=== PATIENT | male | born 1930 | race Caucasian/White ===

== ENCOUNTER 2018-06-11 16:34 | Inpatient (IN) | payer OTHER, MEDICAID ==
[~2018-06-11] VITALS: Ht 182.9 cm; Wt 93.4 kg
--- NOTE | 2018-06-11 19:20 | NUR ---
Admission note. Rerceived 88 y.o male direct admission from [facility] via wheelchair. Awake, alert & oriented to name only. Unable to ambulate on own. Placed n Room 105A. Instructed on use of call igh Addendum: 06/11/18 at 2018 by Thierry Hagen RN Instructed on use of call light. Bed in low, locked position with bed alarm in place.
[2018-06-11 19:51] VITALS: BP_SYST 158
[2018-06-11 20:00] VITALS: BP_SYST 158
[2018-06-11] MEDS ORDERED: AMLO5TAB4 PO (20:56)
[2018-06-11] MEDS ORDERED: LOVA40TA75 PO (21:11)
[2018-06-11] MEDS ORDERED: ACET325T53 PO (21:11)
[2018-06-11] MEDS ORDERED: MOM PO (21:11)
[2018-06-11] MEDS ORDERED: DONE10TA44 PO (21:11)
[2018-06-11] MEDS ORDERED: VITD400 PO (21:11)
[2018-06-11] MEDS ORDERED: SYN50 PO (21:11)
[2018-06-11] MEDS ORDERED: MULT-300 PO (21:11)
[2018-06-11] MEDS ORDERED: OMEG-143 PO (21:11)
[2018-06-11] MEDS ORDERED: CELE100C PO (21:11)
[2018-06-11] MEDS ORDERED: MELA3TAB PO (21:11)
[2018-06-11] MEDS ORDERED: DEXT30DR6 EACH EYE (21:11)
[2018-06-11] MEDS ORDERED: THEO200C4 PO (21:11)
[2018-06-11] MEDS ORDERED: DOCU-144 PO (21:11)
[2018-06-11] MEDS ORDERED: CYM30 PO (21:11)
[2018-06-11] MEDS ORDERED: CALC-823 PO (21:11)
[2018-06-11] MEDS ORDERED: TAMS-11 PO (21:11)
[2018-06-11 21:20] LABS: BASOPHILS # (AUTO) 0.1 K/uL (0.0-0.2); BASOPHILS % (AUTO) 1.3 % (0.0-2.0); EOSINOPHILS # (AUTO) 0.2 K/uL (0.0-0.4); EOSINOPHILS % (AUTO) 2.6 % (0.0-4.0); HEMATOCRIT 45.8 % (36-54); HEMOGLOBIN 14.5 g/dL (14.0-18.0); LYMPHOCYTES # (AUTO) 1.5 K/uL (1.0-5.5); LYMPHOCYTES % (AUTO) 21.4 % (20.5-51.5); MEAN CORPUSCULAR HEMOGLOBIN 31 pg (27-31); MEAN CORPUSCULAR HGB CONC 32 % (32-36); MEAN CORPUSCULAR VOLUME 99 fL (79.0-98.0); MONOCYTES # (AUTO) 0.6 K/uL (0.0-1.0); NEUTROPHILS # (AUTO) 4.7 K/uL (1.8-7.7); NEUTROPHILS % (AUTO) 65.7 % (40.0-70.0); PLATELET COUNT (AUTO) 174 K/uL (130-430); RED BLOOD CELL COUNT(AUTO) 4.64 MIL/uL (4.2-6.2); WHITE BLOOD COUNT (AUTO) 7.1 K/uL (4.8-10.8)
[2018-06-11] MEDS ORDERED: ACETAMINOPHEN 325 MG TABLET PO SCH (21:30)
[2018-06-11] MEDS ORDERED: MILK OF MAGNESIA 30 ML UDC PO SCH (21:30)
--- NOTE | 2018-06-11 21:45 | NUR ---
IV started on the right hand #22g. Patient tolerated procedure well.
[2018-06-11 22:01] LABS: ALANINE AMINOTRANSFERASE 27 U/L (12-78); ALBUMIN 3.5 g/dL (3.4-4.8); ANION GAP 9 (5-15); ASPARTATE AMINOTRANSFERASE 15 U/L (10-37); CALCIUM 9.3 mg/dL (8.4-11.0); CHLORIDE 112 mmol/L (98-107); CREATININE 1.19 mg/dL (0.55-1.30); GLUCOSE 103 mg/dL (70-99); POTASSIUM 4.3 mmol/L (3.5-5.1); SODIUM SERUM 144 mmol/L (136-145); TOTAL BILIRUBIN 0.5 mg/dL (0.0-1.0); UREA NITROGEN, BLOOD 40 mg/dL (8-21)
[2018-06-11 22:06] VITALS: BP_SYST 158
[2018-06-11] MEDS ORDERED: ACETAMINOPHEN 325 MG TABLET PO PRN (22:45)
[2018-06-11] MEDS ORDERED: MILK OF MAGNESIA 30 ML UDC PO PRN (22:45)
[2018-06-11] MEDS: D5/0.45 NS 1,000 ML IV SCH (22:51)
[2018-06-11] MEDS: LevALBUTEROL HCL 1.25 MG/0.5 ML *CONC.* VIAL.NEB (XOPENEX CONC.) INH SCH (23:31)
[2018-06-12] VITALS: BP_SYST 126
--- NOTE | 2018-06-12 02:49 | NUR ---
Patient is sleeping, resting comfortably in bed. No SOB, no acute distress, no signs of pain or facial grimacing. Breathing is even and unlabored with visible chest rise and fall noted. Call light is within reach.
--- NOTE | 2018-06-12 04:45 | NUR ---
Patient is awake, resting comfortably in bed. No SOB, no acute distress, no complaints of pain. Positive affect at this time. Patient is laughing. Bed is locked, in the lowest position, 2x side rails up, bed alarm is on. Call light is within reach. Encouraged patient to call.
--- NOTE | 2018-06-12 05:42 | NUR ---
Patient is sleeping, resting comfortably in bed. No SOB, no acute distress, no signs of pain or facial grimacing at this time. IV site is intact, currently infusing IVF at the ordered rate, see eMAR for details. Bed is locked, in the lowest position, 3x side rails up, bed alarm is on. Call light is within reach.
[2018-06-12] MEDS: LEVOTHYROXINE SODIUM 0.05 MG TABLET PO SCH (06:15)
[2018-06-12] MEDS: LevALBUTEROL HCL 1.25 MG/0.5 ML *CONC.* VIAL.NEB (XOPENEX CONC.) INH SCH ×3 (07:15→23:40)
--- NOTE | 2018-06-12 07:50 | NUR ---
INITIAL NOTE RECEIVED PATIENT FROM WEAPONS OFFICER. PATIENT IS RESTING IN BED, EASILY AROUSABLE. A/OX1. DENIES PAIN. ROOM AIR. NO ACUTE DISTRESS. NO SOB. RESPIRATION EVEN AND UNLABORED. SKIN WARM AND DRY TO TOUCH. IV INTACT AND PATENT TO RIGHT HAND. YEIMY IV FLUID ORDERED WITH NO S/SX INFILTRATION NOTED. BED IN LOW AND LOCKED POSITION. SIDERAIL UP X3. BED ALARM ON. ALL NEEDS MET. CALL LIGHT IN REACH. CONT TO MONITOR.
--- NOTE | 2018-06-12 07:58 | NUR ---
Closing Notes Handoff report given to oncoming dayshift nurse at the bedside. Patient is asleep, resting comfortably in bed. No SOB, no acute distress, no signs of pain or facial grimacing. Breathing is even and unlabored with visible chest rise and fall noted. IV site is intact, currently infusing IVF at the ordered rate, see eMAR. Bed is locked, in the lowest position, 3x side rails up, bed alarm is on. Call light is within reach. Fall and safety precautions maintained. All needs have been met during this shift.
[2018-06-12 08:00] VITALS: BP_SYST 129
[2018-06-12] MEDS: CELECOXIB 100 MG CAPSULE PO SCH (08:56)
[2018-06-12] MEDS: DOCUSATE SODIUM 100 MG CAPSULE PO SCH (08:56)
[2018-06-12] MEDS: ENOXAPARIN SODIUM 40 MG/0.4 ML SYRINGE SUBCUT SCH (08:56)
[2018-06-12] MEDS: ATORVASTATIN 10 MG TABLET PO SCH (08:56)
[2018-06-12] MEDS: MULTIVITS,CA,MINERALS/IRON/FA 1 TABLET PO SCH (08:56)
[2018-06-12] MEDS: CALCIUM CARBONATE/VITAMIN D3 1 TAB TABLET PO SCH (08:57)
[2018-06-12] MEDS: amLODIPine BESYLATE 5 MG TABLET PO SCH (08:57)
[2018-06-12] MEDS: DULoxetine HCL 30 MG CAPSULE.DR (CYMBALTA) PO SCH (08:57)
[2018-06-12] MEDS: THEOPHYLLINE ANHYDROUS 200 MG CAP.ER.24H PO SCH (08:58)
[2018-06-12] MEDS: CEFEPIME 1 GM in D5W 50 ML IV SCH (08:59)
[2018-06-12] MEDS ORDERED: OMEGA-3/DHA/EPA/FISH OIL 1 GM CAPSULE PO SCH (09:00)
[2018-06-12] MEDS: PEG 400/HYPROMELLOSE/GLYCERIN 15 ML DROPS EACH EYE SCH ×2 (09:00→20:56)
--- NOTE | 2018-06-12 09:00 | NUR ---
MEDS ALL DUE MEDS ADMINISTERED ORDERED, YEIMY WELL. CONT TO MONITOR. CALL LIGHT IN REACH
--- NOTE | 2018-06-12 10:00 | NUR ---
NOTES PROVIDED INCONTINENCE CARE WITH CARE MANAGEMENT ASSOCIATE AND REPOSITIONED FOR COMFORT, YEIMY WELL. ALL NEEDS MET. CALL LIGHT IN REACH. CONT TO MONITOR.
--- NOTE | 2018-06-12 10:49 | NUR ---
Nutrition Update Brendan Scale 17 noted. Pt admitted for UTI. Diet: regular, cardiac, mechanical soft BMI: 27.9 kg/m2 RD to follow per nutrition care standards.
[2018-06-12 11:27] VITALS: BP_SYST 112
--- NOTE | 2018-06-12 12:00 | NUR ---
NOTES PATIENT RESTING IN BED. REPOSITIONED FOR LUNCH WITH PATIENT SITTING UPRIGHT IN BED, YEIMY WELL. ALL NEEDS MET. CONT TO MONITOR. CALL LIGHT IN REACH.
[2018-06-12] MEDS: D5/0.45 NS 1,000 ML IV SCH (12:05)
--- NOTE | 2018-06-12 13:00 | NUR ---
NOTES TICKET SCHEDULER ASSISTED PATIENT WITH LUNCH. PATIENT ATE WELL WITH NO COMPLICATIONS NOTED. ALL NEEDS MET. CONT TO MONITOR
--- NOTE | 2018-06-12 14:00 | NUR ---
NOTES PATIENT RESTING COMFORTABLY. NOTED RISE/FALL OF CHEST. ROOM AIR. NO ACUTE DISTRESS. NO SOB. RESPIRATION EVEN AND UNLABORED. ALL NEEDS MET. CONT TO MONITOR.
[2018-06-12 15:01] VITALS: BP_SYST 106
--- NOTE | 2018-06-12 16:00 | NUR ---
NOTES PATIENT ATTEMPTED TO GET OUT OF BED; BED ALARMED. PATIENT CONFUSED AND REMOVED GOWN. PROVIDED PATIENT WITH NEW GOWN AND PROVIDED INCONTINENCE CARE, YEIMY WELL. REPOSITIONED FOR COMFORT WITH PILLOWS. ALL NEEDS MET. BED LOW AND LOCKED. SIDERAIL UPX3. BED ALARM ON. ROOM NEAR NURSES STATION. CONT TO MONITOR. CALL LIGHT IN REACH.
--- NOTE | 2018-06-12 18:00 | NUR ---
NOTES REPOSITIONED PATIENT FOR COMFORT WITH FINE ARTS MODEL, YEIMY WELL. PATIENT AWAKE IN BED. VITAL SIGN STABLE. ALL NEEDS MET. CONT TO MONITOR.
--- NOTE | 2018-06-12 19:00 | NUR ---
CLOSING NOTE/ PATIENT AWAKE IN BED. NO S/SX PAIN/DISCOMFORT NOTED. NO ACUTE DISTRESS. NO SOB. RESPIRATION EVEN AND UNLABORED. SKIN WARM AND DRY TO TOUCH. IV INTACT AND PATENT WITH NO S/SX INFECTION/INFILTRATION NOTED. KEPT CLEAN AND DRY. BED IN LOW AND LOCKED POSITION. SIDERAIL UP X3. BED ALARM. ALL NEEDS MET. CALL LIGHT IN REACH. CONT TO MONITOR. ROOM NEAR NURSES STATION. WILL ENDORSE TO ONCOMING SHIFT. SEEN AND EXAMINED BY AT BEDSIDE.
--- NOTE | 2018-06-12 19:20 | NUR ---
INITIAL NOTES Handoff report received from offgoing nurse at the bedside. Patient is awake and alert, resting comfortably in bed. No SOB, no acute distress, no complaints of pain at this time. Bed is locked, in the lowest position, 3x side rails up, bed alarm is on. Call light is within reach. Encouraged patient to call for assistance. Will continue with plan of care.
[2018-06-12 20:00] VITALS: BP_SYST 128
[2018-06-12] MEDS: CHOLECALCIFEROL (VITAMIN D-3) 400 UNIT TABLET PO SCH (20:56)
[2018-06-12] MEDS: TAMSULOSIN HCL 0.4 MG CAP PO SCH (20:56)
[2018-06-12] MEDS: DONEPEZIL HCL 5 MG TABLET (ARICEPT) PO SCH (20:56)
[2018-06-12] MEDS ORDERED: NON-FORMULARY MEDICATION (Melatonin 3 MG) PO SCH (21:00)
--- NOTE | 2018-06-12 22:00 | NUR ---
Patient is resting comfortably in bed. No SOB, no acute distress, no signs of pain or facial grimacing at this time. Bed is locked, in the lowest position, 3x side rails up, bed alarm is on. Call light is within reach.
--- NOTE | 2018-06-12 23:40 | NUR ---
Patient is attempting to climb out of bed. Tried to reorient patient to hospital setting, patient did not verbalize understanding. States that he is sleeping in a pile of metal right now, and that he wants to go back to base. Repositioned the patient for comfort. Also covered the patient in blankets. Patient is now resting comfortably in bed. No SOB, no acute distress, no complaints of pain at this time. Bed is locked, in the lowest position, 3x side rails up, bed alarm is on. Call light is within reach. Encouraged patient to call for assistance.
[2018-06-13 00:10] VITALS: BP_SYST 136
--- NOTE | 2018-06-13 02:00 | NUR ---
Patient is awake, resting comfortably in bed. No SOB, no acute distress, no complaints of pain at this time. Bed is locked, in the lowest position, 2x side rails up, bed alarm is on. Call light is within reach. Encouraged patient to call for assistance.
[2018-06-13] MEDS: D5/0.45 NS 1,000 ML IV SCH ×2 (02:35→13:58)
--- NOTE | 2018-06-13 03:30 | NUR ---
Patient attempted to climb out of bed. When asking the patient where he was going, patient stated that he needed to use the restroom for a bowel movement. Promptly assisted the patient back into bed, and provided the patient a bedpan. Patient was unable to void at this time. Assisted the patient into a comfortably position in bed, and also provided warm blankets per patient request. Bed is locked, in the lowest position, 2x side rails up, bed alarm is on. Call light is within reach. Encouraged patient to call for assistance.
--- NOTE | 2018-06-13 06:00 | NUR ---
Patient is sitting up in bed, confused. Stating that he currently knows that he is at [facility], but doesn't know why he is here or where the doctor is at. Reoriented patient to hospital setting. Patient is surprised that he is in the hospital, appears to be more awake then previously, AAOx2 to name and place only at this time. Will continue to monitor patient closely. Assisted patient back into bed and provided warm blankets for the patient per patient request.
[2018-06-13] MEDS: LEVOTHYROXINE SODIUM 0.05 MG TABLET PO SCH (06:01)
[2018-06-13] MEDS: LevALBUTEROL HCL 1.25 MG/0.5 ML *CONC.* VIAL.NEB (XOPENEX CONC.) INH SCH ×3 (07:19→23:44)
--- NOTE | 2018-06-13 07:29 | NUR ---
CLOSING NOTES Handoff report given to oncoming dayshift nurse at the bedside. Patient is sleeping, resting comfortably in bed. No SOB, no acute distress, no signs of pain or discomfort. Bed is locked, in the lowest position, 3x side rails up, bed alarm is on. Call light is within reach. Fall and safety precautions maintained. All needs have been met during this shift.
--- NOTE | 2018-06-13 07:45 | NUR ---
INITIAL NOTE RECEIVED REPORT FROM AUTO CUSTOMIZE PAINTER. PATIENT RESTING IN BED, EASILY AROUSABLE. PATIENT CONFUSED. A/Ox1. NO S/SX PAIN/DISCOMFORT NOTED. ROOM AIR. NO ACUTE DISTRESS. NO SOB. RESPIRATION EVEN AND UNLABORED. SKIN WARM AND DRY TO TOUCH. IV INTACT AND PATENT. YEIMY IV FLUID ORDERED. REPOSITIONED FOR COMFORT, YEIMY WELL. BED IN LOW AND LOCKED POSITION. SIDERAIL UP X3. ROOM NEAR NURSES STATION. ALL NEEDS MET. CALL LIGHT IN REACH. CONT TO MONITOR WITH FREQUENT VISUAL CHECKS.
[2018-06-13 08:00] VITALS: BP_SYST 119
[2018-06-13] MEDS: THEOPHYLLINE ANHYDROUS 200 MG CAP.ER.24H PO SCH (09:01)
[2018-06-13] MEDS: CEFEPIME 1 GM in D5W 50 ML IV SCH (09:01)
[2018-06-13] MEDS: PEG 400/HYPROMELLOSE/GLYCERIN 15 ML DROPS EACH EYE SCH ×2 (09:02→21:09)
[2018-06-13] MEDS: DULoxetine HCL 30 MG CAPSULE.DR (CYMBALTA) PO SCH (09:02)
[2018-06-13] MEDS: CELECOXIB 100 MG CAPSULE PO SCH (09:02)
[2018-06-13] MEDS: CALCIUM CARBONATE/VITAMIN D3 1 TAB TABLET PO SCH (09:02)
[2018-06-13] MEDS: MULTIVITS,CA,MINERALS/IRON/FA 1 TABLET PO SCH (09:03)
[2018-06-13] MEDS: amLODIPine BESYLATE 5 MG TABLET PO SCH (09:03)
[2018-06-13] MEDS: DOCUSATE SODIUM 100 MG CAPSULE PO SCH (09:03)
[2018-06-13] MEDS: ATORVASTATIN 10 MG TABLET PO SCH (09:03)
[2018-06-13] MEDS: ENOXAPARIN SODIUM 40 MG/0.4 ML SYRINGE SUBCUT SCH (09:04)
--- NOTE | 2018-06-13 09:05 | NUR ---
MEDS ALL DUE MEDS ADMINISTERED WITH NO DIFFICULTY, PATIENT YEIMY WELL. ALL NEEDS MET. CONT TO MONITOR. Addendum: 06/13/18 at 1329 by Rachel Marquez RN ASSISTED PATIENT WITH BREAKFAST. PATIENT DID NOT WANT BREAKFAST EARLIER. PATIENT ONLY WANTED CREAM OF WHEAT AND MILK, YEIMY WELL.
--- NOTE | 2018-06-13 10:15 | NUR ---
NOTES ASSISTED DIRECTOR SYSTEMS WITH INCONTINENCE CARE, PATIENT YEIMY WELL. REPOSITIONED WITH PILLOW FOR COMFORT. ALL NEEDS MET. CONT TO MONITOR.
--- NOTE | 2018-06-13 12:00 | NUR ---
NOTES REPOSITIONED PATIENT SITTING UP FOR LUNCH, YEIMY WELL. VITAL SIGN STABLE. NO ACUTE DISTRESS. ALL NEEDS MET. CONT TO MONITOR.
--- NOTE | 2018-06-13 12:19 | NUR ---
DC Planning: DCP assessment: CM attempted to speak with the pt. yesterday and today, but unable to. The pt was asleep and per nurse's note the pt. is confused, ALOC. CM called phone number available on face sheet # [phone] which is belong to [facility] address: [address] [place] [address] (different from the address on ). CM is waiting for call back from the facility. CM also LVM pt's son, Thang Whipple # [phone] and is waiting for his return call for further demographic and background assessment.
[2018-06-13 12:26] VITALS: BP_SYST 129
--- NOTE | 2018-06-13 13:00 | NUR ---
NOTES WET MACHINE TENDER ASSISTED PATIENT WITH LUNCH, YEIMY WELL. NO COMPLICATIONS NOTED. ALL NEEDS MET. CONT TO MONITOR.
--- NOTE | 2018-06-13 13:59 | NUR ---
IVF HUNG NEW BAG OF IV FLUIDS ORDERED YEIMY WELL. IV INTACT AND PATENT WITH NO S/SX INFECTION/INFILTRATION NOTED. CONT TO MONITOR.
--- NOTE | 2018-06-13 15:25 | NUR ---
NOTES PATIENT RESTING COMFORTABLY IN BED. RISE/FALL CHEST NOTED. NO ACUTE DISTRESS. NO SOB. RESPIRATION EVEN AND UNLABORED. SKIN WARM AND DRY TO TOUCH. CALL LIGHT IN REACH. CONT TO MONITOR WITH FREQUENT VISUAL CHECKS
--- NOTE | 2018-06-13 15:54 | NUR ---
Social Service Note: SKILLED LABORER has contacted [facility] ( ); SKILLED LABORER left a message with the studio receptionist for the social work manager to call SKILLED LABORER back to discuss pt's DC from [facility] and where he was discharged to.
[2018-06-13 16:25] VITALS: BP_SYST 132
--- NOTE | 2018-06-13 16:50 | NUR ---
NOTES ASSISTED PROCESSOR GRAIN WITH INCONTINENCE CARE AND REPOSITIONED PATIENT FOR DINNER; PATIENT YEIMY WELL. ALL NEEDS MET. CONT TO MONITOR.
--- NOTE | 2018-06-13 17:30 | NUR ---
NOTES PIN MACHINE OPERATOR ASSISTED PATIENT WITH EATING DINNER, PATIENT YEIMY WELL. NO COMPLICATIONS NOTED. CONT TO MONITOR.
--- NOTE | 2018-06-13 18:37 | NUR ---
CLOSING NOTE PATIENT RESTING IN BED, EASILY AROUSABLE. VITAL SIGN STABLE. NO ACUTE DISTRESS. NO SOB. RESPIRATION EVEN AND UNLABORED. SKIN WARM AND DRY TO TOUCH. IV INTACT AND PATENT WITH NO S/SX INFECTION/INFILTRATION NOTED. YEIMY IV FLUID ORDERED. KEPT PATIENT CLEAN AND DRY. BED IN LOW AND LOCKED POSITION. SIDERAIL UP X3. BED ALARM ON. ALL NEEDS MET. CALL LIGHT IN REACH. ROOM NEAR NURSES STATION. CONT TO MONITOR. WILL ENDORSE TO ONCOMING SHIFT.
--- NOTE | 2018-06-13 19:15 | NUR ---
CHANGE OF SHIFT: pt. awake, alert, knows he is in the hospital, smiling. pt. denies any discomfort. on semi fowlers position. IVF infusing via rt. hand with D5 1/2 NS @ 75 cc/hr. on fall precautions. bed alarm on, side rails up.
[2018-06-13 20:00] VITALS: BP_SYST 125
[2018-06-13] MEDS: CHOLECALCIFEROL (VITAMIN D-3) 400 UNIT TABLET PO SCH (21:07)
[2018-06-13] MEDS: DONEPEZIL HCL 5 MG TABLET (ARICEPT) PO SCH (21:07)
[2018-06-13] MEDS: TAMSULOSIN HCL 0.4 MG CAP PO SCH (21:07)
--- NOTE | 2018-06-13 21:30 | NUR ---
NOTES: oral meds given and tolerated well. repositioned. cardiac pattern on sinus bradycardia.
--- NOTE | 2018-06-13 22:46 | NUR ---
NOTES: pt. still awake but calm, kept warm with blanket. no complaints.
[2018-06-14 00:15] VITALS: BP_SYST 133
--- NOTE | 2018-06-14 01:02 | NUR ---
NOTES: made rounds ,pt. asleep. in no acute distress. continue to monitor.
--- NOTE | 2018-06-14 04:00 | NUR ---
NOTES: pt. sleeping but easily awakened. occ. paced rhythm, rate 50's.
[2018-06-14] MEDS: D5/0.45 NS 1,000 ML IV SCH ×2 (05:52→17:10)
--- NOTE | 2018-06-14 06:05 | NUR ---
NOTES: pt. awake, no complaints manifested. IVF patent, gets incontinent, changed pad and kept dry. skin intact
[2018-06-14] MEDS: LevALBUTEROL HCL 1.25 MG/0.5 ML *CONC.* VIAL.NEB (XOPENEX CONC.) INH SCH ×2 (07:15→16:31)
--- NOTE | 2018-06-14 07:15 | NUR ---
endorsed pt. to incoming shift with nurse Aguilar.
[2018-06-14] MEDS: LEVOTHYROXINE SODIUM 0.05 MG TABLET PO SCH (07:16)
[2018-06-14 07:33] LABS: BASOPHILS % (AUTO) 0.5 % (0.0-2.0); EOSINOPHILS # (AUTO) 0.3 K/uL (0.0-0.4); EOSINOPHILS % (AUTO) 4.4 % (0.0-4.0); HEMATOCRIT 39.9 % (36-54); HEMOGLOBIN 12.9 g/dL (14.0-18.0); LYMPHOCYTES # (AUTO) 1.7 K/uL (1.0-5.5); LYMPHOCYTES % (AUTO) 29.6 % (20.5-51.5); MEAN CORPUSCULAR HEMOGLOBIN 32 pg (27-31); MEAN CORPUSCULAR HGB CONC 32 % (32-36); MEAN CORPUSCULAR VOLUME 98 fL (79.0-98.0); MONOCYTES # (AUTO) 0.5 K/uL (0.0-1.0); MONOCYTES % (AUTO) 9.1 % (1.7-9.3); NEUTROPHILS # (AUTO) 3.3 K/uL (1.8-7.7); NEUTROPHILS % (AUTO) 56.4 % (40.0-70.0); PLATELET COUNT (AUTO) 154 K/uL (130-430); RED BLOOD CELL COUNT(AUTO) 4.06 MIL/uL (4.2-6.2); RED CELL DISTRIBUTION WIDTH 13.1 % (9.0-15.0); WHITE BLOOD COUNT (AUTO) 5.8 K/uL (4.8-10.8)
--- NOTE | 2018-06-14 07:40 | NUR ---
INITIAL NOTE RECEIVED PT IN BED, NO S/S OF DISTRESS OR SOB NOTED, PT HAS NO C/O PAIN AT THIS TIME, PT IN STABLE CONDITION, PT AAOX1, VERBAL, PROVIDED REALITY ORIENTATION. IV CATHETER PATENT, NO SIGNS OF INFECTION OR INFILTRATION NOTED. BED AT LOWEST POSITION, CALL LIGHT WITHIN REACH, WILL CONTINUE TO MONITOR PT FOR ANY CHANGES, FALL AND SAFETY PRECAUTIONS IN PLACE.
[2018-06-14 07:45] LABS: ANION GAP 10 (5-15); CALCIUM 8.6 mg/dL (8.4-11.0); CHLORIDE 108 mmol/L (98-107); CREATININE 1.16 mg/dL (0.55-1.30); GLUCOSE 96 mg/dL (70-99); POTASSIUM 3.7 mmol/L (3.5-5.1); SODIUM SERUM 143 mmol/L (136-145); UREA NITROGEN, BLOOD 23 mg/dL (8-21)
[2018-06-14] MEDS: DOCUSATE SODIUM 100 MG CAPSULE PO SCH (08:36)
[2018-06-14] MEDS: DULoxetine HCL 30 MG CAPSULE.DR (CYMBALTA) PO SCH (08:36)
[2018-06-14] MEDS: ATORVASTATIN 10 MG TABLET PO SCH (08:36)
[2018-06-14] MEDS: CELECOXIB 100 MG CAPSULE PO SCH (08:36)
[2018-06-14] MEDS: MULTIVITS,CA,MINERALS/IRON/FA 1 TABLET PO SCH (08:36)
[2018-06-14] MEDS: CALCIUM CARBONATE/VITAMIN D3 1 TAB TABLET PO SCH (08:36)
[2018-06-14] MEDS: CEFEPIME 1 GM in D5W 50 ML IV SCH (08:37)
[2018-06-14] MEDS: amLODIPine BESYLATE 5 MG TABLET PO SCH (08:40)
[2018-06-14] MEDS: PEG 400/HYPROMELLOSE/GLYCERIN 15 ML DROPS EACH EYE SCH (08:40)
[2018-06-14] MEDS: THEOPHYLLINE ANHYDROUS 200 MG CAP.ER.24H PO SCH (08:42)
[2018-06-14] MEDS: ENOXAPARIN SODIUM 40 MG/0.4 ML SYRINGE SUBCUT SCH (08:43)
[2018-06-14 08:56] VITALS: BP_SYST 146
--- NOTE | 2018-06-14 10:15 | NUR ---
ROUNDS PT IN BED, NO S/S OF DISTRESS OR SOB NOTED, PT HAS NO C/O PAIN AT THIS TIME, PT IN STABLE CONDITION, PT RESTING COMFORTABLY, WILL CONTINUE TO MONITOR PT FOR ANY CHANGES.
[2018-06-14 12:00] VITALS: BP_SYST 141
--- NOTE | 2018-06-14 14:58 | NUR ---
SEE THE PHYSICAL THERAPY INITIAL EVALUATION. RECOMMEND SNF PLACEMENT.
--- NOTE | 2018-06-14 15:45 | NUR ---
CONSENT FOR TRANSFER LEFT A MESSAGE TO EDWIGE AMATO IN [place] FOR CONSENT, AWAITING CALL BACK, .
[2018-06-14 16:00] VITALS: BP_SYST 133
--- NOTE | 2018-06-14 16:31 | NUR ---
Discharge Planning: Pt accepted to [facility] (f [phone] p [phone]) room 127B, DCP arranged transportation [facility] ([phone]) Will Call. Pt packet taken to nurses station. Nurses to nurse [phone] [facility].
--- NOTE | 2018-06-14 16:34 | NUR ---
ROUNDS DR VENTURA RANDLE, AWARE OF PATIENT'S CONDITION, AWARE OF BLADDER SCANNER RESULTS, PER NEW ORDER FOR A NEW UROLOGIST. CHARGE NURSE AWARE.
--- NOTE | 2018-06-14 16:50 | NUR ---
CONSULTATION PAGED/CALLED Reason for Consultation: [] URINARY RETENTION Person Who was Notified: [] DEMETRIO Consulting Physician: [] DR FRANCIS, DR Dalia BARKER CONSULTING SOLUTION MANAGER Half Section Ironer Specialty: [] UROLOGY Ordering Physician: [] DR Brianne WHITEHEAD
[2018-06-14 17:45] VITALS: BP_SYST 130
--- NOTE | 2018-06-14 17:57 | NUR ---
REPORT REPORT GIVEN TO HENRY AT [facility], MADE NURSE AWARE THAT PT PULLED OUT IV CATHETER ON RIGHT HAND, NO ACTIVE BLEEDING CATHETER INTACT, PLACED A NEW CATHETER RIGHT HAND 22 GAUGE, FLUSHES AND HAS BLOOD RETURN, PATIENT TOLERATED, ASEPTIC TECHNIQUE USED.
--- NOTE | 2018-06-14 18:30 | NUR ---
PT TRANSFERRED Report given to Darlyn at [facility]. Transfer packet with Transfer Orders and Medication Reconciliation form given to EMT with report. Exitcare provided. [facility] ID band removed, replaced with ID band with pt's name and . IV catheter in place, right hand 22 gauge, saline lock. No signs of infection or infiltration noted. All belongings sent with patient. Patient left floor via gurney escorted by EMT in no distress.
== END 2018-06-14 18:30 | DRG 640 ==
LOC: SMU 19:16 → STU 19:25
PROVIDERS: ADMIT Family Medicine; ATTEND Family Medicine
DX: E86.0 Dehydration (principal); G93.41 Metabolic encephalopathy; E03.9 Hypothyroidism, unspecified; I10 Essential (primary) hypertension; J44.9 Chronic obstructive pulmonary disease, unspecified; N40.0 Benign prostatic hyperplasia without lower urinary tract symptoms; M19.90 Unspecified osteoarthritis, unspecified site; E78.5 Hyperlipidemia, unspecified; Z87.891 Personal history of nicotine dependence
CPT/HCPCS: 36415; 80048; 80053; 85025; 87086; 94640; 94760; J0692; J1650; J7060; J7612

== ENCOUNTER 2018-12-27 18:36 | Inpatient (IN) | payer OTHER, MEDICAID ==
[~2018-12-27] VITALS: Ht 182.9 cm; Wt 95.3 kg
[~2018-12-27 18:36] MED LIST: ACET325T53 PO; AMLO5TAB4 PO; CALC-823 PO; CELE100C PO; CYM30 PO; DEXT30DR6 EACH EYE; DOCU-144 PO; DONE10TA44 PO; LOVA40TA75 PO; MELA3TAB PO; MOM PO; MULT-300 PO; OMEG-143 PO; SYN50 PO; TAMS-11 PO; THEO200C4 PO; VITD400 PO
[2018-12-27 18:47] VITALS: BP_SYST 120
--- NOTE | 2018-12-27 19:10 | NUR ---
ADMISSION NOTE [facility]. Patient admitted with diagnosis of DEHYDRATION/UTI. Patient is confused ,oriented to name only . Orinted patient to hospital room, call light, toileting, pain management. Patient informed that Ramin will be his nurse and that their room number is 105a. Personal belongings checked and Belongings List documented. Call light within reach.
[2018-12-27 19:28] VITALS: BP_SYST 145
--- NOTE | 2018-12-27 20:26 | NUR ---
PHONED PAGED DR SHANTHI ENAMORADO REGARDING DA NEW ADMISSION FOR ORDERS .
[2018-12-27 20:27] LABS: BASOPHILS % (AUTO) 0.5 % (0.0-2.0); EOSINOPHILS # (AUTO) 0.2 K/uL (0.0-0.4); EOSINOPHILS % (AUTO) 3.7 % (0.0-4.0); HEMATOCRIT 42.2 % (36-54); HEMOGLOBIN 13.9 g/dL (14.0-18.0); LYMPHOCYTES # (AUTO) 1.4 K/uL (1.0-5.5); LYMPHOCYTES % (AUTO) 24.9 % (20.5-51.5); MEAN CORPUSCULAR HEMOGLOBIN 32 pg (27-31); MEAN CORPUSCULAR HGB CONC 33 % (32-36); MEAN CORPUSCULAR VOLUME 98 fL (79.0-98.0); MONOCYTES # (AUTO) 0.6 K/uL (0.0-1.0); MONOCYTES % (AUTO) 10.8 % (1.7-9.3); NEUTROPHILS # (AUTO) 3.5 K/uL (1.8-7.7); NEUTROPHILS % (AUTO) 60.1 % (40.0-70.0); PLATELET COUNT (AUTO) 162 K/uL (130-430); RED BLOOD CELL COUNT(AUTO) 4.31 MIL/uL (4.2-6.2); WHITE BLOOD COUNT (AUTO) 5.8 K/uL (4.8-10.8)
[2018-12-27 20:31] VITALS: BP_SYST 125
[2018-12-27 20:45] LABS: ANION GAP 8 (5-15); CHLORIDE 107 mmol/L (98-107); CREATININE 1.37 mg/dL (0.55-1.30); GLUCOSE 100 mg/dL (70-99); POTASSIUM 3.7 mmol/L (3.5-5.1); SODIUM SERUM 140 mmol/L (136-145); UREA NITROGEN, BLOOD 27 mg/dL (8-21)
--- NOTE | 2018-12-27 21:15 | NUR ---
NEW ORDERS SPOKE WITH DR MAKI LABS FOR AM , START REGULAR PO DIET ADMIT TELEMETRY in / pt .
--- NOTE | 2018-12-27 22:21 | NUR ---
NEW IV STARTED 20 GAUGE RT F/A TOLERATED .
--- NOTE | 2018-12-27 22:25 | NUR ---
[facility] COLLECTED NARES & SENT TO LAB .
[2018-12-27] MEDS ORDERED: MILK OF MAGNESIA 30 ML UDC PO PRN (23:00)
[2018-12-27] MEDS ORDERED: ACETAMINOPHEN 325 MG TABLET PO PRN (23:00)
[2018-12-27] MEDS ORDERED: KCL 20 mEq in D5/0.45NS 1000mL 1,000 ML IV ONE (23:34)
[2018-12-27] MEDS ORDERED: CEFEPIME 1 GM/VIAL (MAXIPIME) ONE (23:34)
[2018-12-27] MEDS: CEFEPIME 1 GM in D5W 50 ML IV SCH (23:40)
[2018-12-28] MEDS: KCL 20 mEq in D5/0.45NS 1000mL 1,000 ML IV SCH ×2 (00:44→15:19)
[2018-12-28 00:46] VITALS: BP_SYST 161
--- NOTE | 2018-12-28 02:37 | NUR ---
MAXIPIME 1 GM IVPB ADMINISTER ORDERED NO ADVERSE REACTION NOTED skin dry warm awake alert .
[2018-12-28] MEDS: LEVOTHYROXINE SODIUM 0.05 MG TABLET PO SCH (06:53)
--- NOTE | 2018-12-28 07:15 | NUR ---
received report at the bedside. patient alert awake x 2. confused at time. lungs bilaterally diminished abdomen soft and non distended. has iv access on the rt forearm #20. wrapped with kerlix but dry and intact with iv fluids infusing on well of F51/2 Ns 20kcl at 60cc/hr. obese. feeder incontinent of urine and stool. bed in low position. call lights within reach. informed patient to call for assistance. hourly rounding needed.
[2018-12-28 07:31] VITALS: BP_SYST 139
[2018-12-28] MEDS: PEG 400/HYPROMELLOSE/GLYCERIN 15 ML DROPS EACH EYE SCH ×2 (08:14→21:45)
[2018-12-28] MEDS: DOCUSATE SODIUM 100 MG CAPSULE PO SCH (08:15)
[2018-12-28] MEDS: DULoxetine HCL 30 MG CAPSULE.DR (CYMBALTA) PO SCH (08:15)
[2018-12-28] MEDS: THEOPHYLLINE ANHYDROUS 200 MG CAP.ER.24H PO SCH (08:16)
[2018-12-28] MEDS: amLODIPine BESYLATE 5 MG TABLET PO SCH (08:16)
[2018-12-28] MEDS: CELECOXIB 100 MG CAPSULE PO SCH (08:26)
--- NOTE | 2018-12-28 08:30 | NUR ---
patient feeder. needs assistance.
[2018-12-28] MEDS ORDERED: OMEGA-3/DHA/EPA/FISH OIL 1 GM CAPSULE PO SCH (09:00)
--- NOTE | 2018-12-28 09:00 | NUR ---
due medication given. assists on adls. hob elevated.
--- NOTE | 2018-12-28 09:51 | NUR ---
Nutrition Update Brendan Scale 17 noted. Pt admitted for dehydration, UTI. Diet: regular BMI: 28.5 kg/m2 RD to follow per nutrition care standards.
--- NOTE | 2018-12-28 10:51 | NUR ---
patient stable no pain nor discomfort noted. hob elevated.
--- NOTE | 2018-12-28 12:20 | NUR ---
had lunch needs to be fed. eaten 70% of foods
[2018-12-28 13:26] VITALS: BP_SYST 136
--- NOTE | 2018-12-28 14:00 | NUR ---
resting no complained
[2018-12-28] MEDS: MULTIVITS,CA,MINERALS/IRON/FA 1 TABLET PO SCH (15:18)
[2018-12-28] MEDS: CEFEPIME 1 GM in D5W 50 ML IV SCH (15:19)
--- NOTE | 2018-12-28 15:27 | NUR ---
hanged iv fluids D51/2ns + 20kcl at 60cc/hr.
--- NOTE | 2018-12-28 17:34 | NUR ---
bed bath done and trish care done by Tonja Shipley. no distress noted.
[2018-12-28 18:11] VITALS: BP_SYST 137
--- NOTE | 2018-12-28 19:00 | NUR ---
dr gutierrez came and evaluate made orders.
--- NOTE | 2018-12-28 19:24 | NUR ---
endorsed to incoming nurse Ramin Rodriguez. patient is stable.
[2018-12-28 20:00] VITALS: BP_SYST 134
[2018-12-28] MEDS ORDERED: NON-FORMULARY MEDICATION (Melatonin 3 MG) PO SCH (21:00)
--- NOTE | 2018-12-28 21:15 | NUR ---
DR SHANTHI ENAMORADO here to see patient & at the bedside NEW ORDERS obtained LABS & Physical therapy for AM .
[2018-12-28] MEDS: CHOLECALCIFEROL (VITAMIN D-3) 400 UNIT TABLET PO SCH (21:44)
[2018-12-28] MEDS: ATORVASTATIN 10 MG TABLET PO SCH (21:44)
[2018-12-28] MEDS: TAMSULOSIN HCL 0.4 MG CAP PO SCH (21:45)
[2018-12-28] MEDS: DONEPEZIL HCL 5 MG TABLET (ARICEPT) PO SCH (21:45)
[2018-12-28] MEDS: ENOXAPARIN SODIUM 30 MG/0.3 ML SYRINGE SUBCUT SCH (21:46)
--- NOTE | 2018-12-29 | NUR ---
Hourly Rounding patient does attempt to climb over bed rails FALL MEASURES implemented BED ALARM is ON / .
[2018-12-29 00:04] VITALS: BP_SYST 114
--- NOTE | 2018-12-29 04:34 | NUR ---
TELEMETRY D/C down grade to MEDICAL - SURGICAL MS per MD .
--- NOTE | 2018-12-29 04:37 | NUR ---
PATIENT is INCONTINENT kept clean & dry as needed , skin dry warm off loading with pillows & turning tolerated / .
[2018-12-29] MEDS: LEVOTHYROXINE SODIUM 0.05 MG TABLET PO SCH (06:38)
--- NOTE | 2018-12-29 07:35 | NUR ---
INITIAL ROUNDS Received pt AAOx1, no s/s resp distress, no c/o pain or discomfort. IVF infusing well to RFA at ordered rate with no s/s infiltration to site. Plan of care for the day reviewed with pt-pt just nodded his head yes-well reinforce all teachings. Pain management, skin and safety explained-well reinforce all teachings. Pt has 3 side rails up, across from the nursing station for safety. Aspiration precautions in place. Call light within reach.
[2018-12-29 07:45] VITALS: BP_SYST 159
[2018-12-29] MEDS: MULTIVITS,CA,MINERALS/IRON/FA 1 TABLET PO SCH (08:52)
[2018-12-29] MEDS: PEG 400/HYPROMELLOSE/GLYCERIN 15 ML DROPS EACH EYE SCH ×2 (08:52→20:55)
[2018-12-29] MEDS: DULoxetine HCL 30 MG CAPSULE.DR (CYMBALTA) PO SCH (08:54)
[2018-12-29] MEDS: amLODIPine BESYLATE 5 MG TABLET PO SCH (08:59)
[2018-12-29] MEDS: CELECOXIB 100 MG CAPSULE PO SCH (09:07)
[2018-12-29] MEDS: THEOPHYLLINE ANHYDROUS 200 MG CAP.ER.24H PO SCH (09:07)
[2018-12-29] MEDS: DOCUSATE SODIUM 100 MG CAPSULE PO SCH (09:08)
[2018-12-29] MEDS ORDERED: OMEGA-3/DHA/EPA/FISH OIL 1 GM CAPSULE PO SCH (11:09)
--- NOTE | 2018-12-29 11:59 | NUR ---
ROUNDS Pt resting quietly in bed with no s/s resp distress, no c/o pain or discomfort. Pt repositioned for comfort and skin care and in preparation for lunch. Call light within reach.
[2018-12-29 13:43] VITALS: BP_SYST 126
[2018-12-29] MEDS: KCL 20 mEq in D5/0.45NS 1000mL 1,000 ML IV SCH (16:23)
[2018-12-29] MEDS: CEFEPIME 1 GM in D5W 50 ML IV SCH (16:23)
[2018-12-29 17:14] VITALS: BP_SYST 137
--- NOTE | 2018-12-29 18:41 | NUR ---
CLOSING NOTE Pt resting quietly in bed with no s/s resp distress, no c/o pain or discomfort. IVF infusing well to RFA at ordered rate with no s/s infiltration to site. All precautions remain in place. Needs met. Call light within reach.
--- NOTE | 2018-12-29 19:35 | NUR ---
Opening notes Received report. Patient is resting comfortably in bed. No signs of distress noted. Breathing is even and unlabored. IV patent and intact infusing fluids. Tubefeeding running @ 45 ml/hr. No needs at this time. Call light with the patient. Safety and contact precautions in place. Family at bedside. Addendum: 12/29/18 at 1949 by Fatmata Welsh RN CHARTED ON WRONG PATIENT
--- NOTE | 2018-12-29 19:49 | NUR ---
Opening notes Received report. Patient is resting comfortably in bed. No signs of distress noted. Breathing is even and unlabored. IV patent and intact, infusing fluids. No needs at this time. Call light with the patient. Safety precautions in place.
[2018-12-29 20:00] VITALS: BP_SYST 140
[2018-12-29] MEDS: DONEPEZIL HCL 5 MG TABLET (ARICEPT) PO SCH (20:52)
[2018-12-29] MEDS: TAMSULOSIN HCL 0.4 MG CAP PO SCH (20:52)
[2018-12-29] MEDS: ATORVASTATIN 10 MG TABLET PO SCH (20:53)
[2018-12-29] MEDS: CHOLECALCIFEROL (VITAMIN D-3) 400 UNIT TABLET PO SCH (20:53)
[2018-12-29] MEDS: ENOXAPARIN SODIUM 30 MG/0.3 ML SYRINGE SUBCUT SCH (20:54)
--- NOTE | 2018-12-29 21:00 | NUR ---
Medications scheduled medications given. Educated the action and side effects of medications. Patient verbalized understanding and tolerated well. Hygiene care performed and patient repositioned. Provided patient with warm blanket. No other needs at this time. Call light with the patient. Safety precautions in place.
--- NOTE | 2018-12-29 23:00 | NUR ---
Resting Patient repositioned to comfort. No other needs at this time. Call light with the patient. Safety precautions in place.
[2018-12-30 00:25] VITALS: BP_SYST 145
--- NOTE | 2018-12-30 02:02 | NUR ---
Sleeping Patient sleeping. No signs of distress noted. Breathing is even and unlabored. Call light with the patient. Safety precautions in place.
--- NOTE | 2018-12-30 04:16 | NUR ---
Sleeping Patient repositioned. No signs of distress noted. Patient went back to sleep. Call light with the patient. Safety precautions in place.
[2018-12-30 06:15] LABS: BASOPHILS # (AUTO) 0.1 K/uL (0.0-0.2); EOSINOPHILS # (AUTO) 0.2 K/uL (0.0-0.4); EOSINOPHILS % (AUTO) 3.9 % (0.0-4.0); HEMATOCRIT 42.1 % (36-54); HEMOGLOBIN 13.8 g/dL (14.0-18.0); LYMPHOCYTES # (AUTO) 1.7 K/uL (1.0-5.5); LYMPHOCYTES % (AUTO) 29.2 % (20.5-51.5); MEAN CORPUSCULAR HEMOGLOBIN 32 pg (27-31); MEAN CORPUSCULAR HGB CONC 33 % (32-36); MEAN CORPUSCULAR VOLUME 97 fL (79.0-98.0); MONOCYTES # (AUTO) 0.5 K/uL (0.0-1.0); MONOCYTES % (AUTO) 9.2 % (1.7-9.3); NEUTROPHILS # (AUTO) 3.3 K/uL (1.8-7.7); NEUTROPHILS % (AUTO) 56.7 % (40.0-70.0); PLATELET COUNT (AUTO) 164 K/uL (130-430); RED BLOOD CELL COUNT(AUTO) 4.33 MIL/uL (4.2-6.2); RED CELL DISTRIBUTION WIDTH 13.7 % (9.0-15.0); WHITE BLOOD COUNT (AUTO) 5.8 K/uL (4.8-10.8)
[2018-12-30] MEDS: KCL 20 mEq in D5/0.45NS 1000mL 1,000 ML IV SCH (06:22)
[2018-12-30] MEDS: LEVOTHYROXINE SODIUM 0.05 MG TABLET PO SCH (06:22)
[2018-12-30 06:36] LABS: ANION GAP 6 (5-15); CALCIUM 8.9 mg/dL (8.4-11.0); CHLORIDE 106 mmol/L (98-107); CREATININE 0.97 mg/dL (0.55-1.30); GLUCOSE 98 mg/dL (70-99); POTASSIUM 3.6 mmol/L (3.5-5.1); SODIUM SERUM 136 mmol/L (136-145); UREA NITROGEN, BLOOD 18 mg/dL (8-21)
--- NOTE | 2018-12-30 07:06 | NUR ---
Closing notes Patient resting in bed. No signs of distress noted. Breathing is even and unlabored. IV patent and intact infusing fluids. All needs met throughout the shift. Call light with the patient. Safety precautions in place. Will endorse care to day shift RN.
[2018-12-30 08:05] VITALS: BP_SYST 123; BP_SYST 133
--- NOTE | 2018-12-30 08:05 | NUR ---
INITIAL ROUNDS Received pt AAOx2, a little grumpy this morning "what is good about it", no s/s resp distress, no c/o pain or discomfort. IVF infusing well to RFA at ordered rate with no s/s infiltration to site. Plan of care for the day reviewed with pt-pt just nodded his head yes-well reinforce all teachings. Pain management, skin and safety explained-well reinforce all teachings. Pt has 3 side rails up, across from the nursing station for safety. Aspiration precautions in place. Call light within reach.
[2018-12-30] MEDS: DOCUSATE SODIUM 100 MG CAPSULE PO SCH (09:33)
[2018-12-30] MEDS: DULoxetine HCL 30 MG CAPSULE.DR (CYMBALTA) PO SCH (09:33)
[2018-12-30] MEDS: MULTIVITS,CA,MINERALS/IRON/FA 1 TABLET PO SCH (09:33)
[2018-12-30] MEDS: CELECOXIB 100 MG CAPSULE PO SCH (09:33)
[2018-12-30] MEDS: amLODIPine BESYLATE 5 MG TABLET PO SCH (09:34)
[2018-12-30] MEDS: PEG 400/HYPROMELLOSE/GLYCERIN 15 ML DROPS EACH EYE SCH (09:34)
[2018-12-30] MEDS: THEOPHYLLINE ANHYDROUS 200 MG CAP.ER.24H PO SCH (09:34)
--- NOTE | 2018-12-30 10:15 | NUR ---
ROUNDS Pt resting quietly in bed with no s/s resp distress, no c/o pain or discomfort. Pt voided, pt cleaned up, new linens to bed and fresh gown placed on pt. Pt repositioned with pillow support and heels off-loaded. Needs met, call light within reach.
[2018-12-30 12:02] VITALS: BP_SYST 147
--- NOTE | 2018-12-30 12:15 | NUR ---
ROUNDS/P.T. Pt resting quietly in bed with no s/s resp distress, no c/o pain or discomfort. Robert Physical Therapist is now here to do P.T. Evaluation with pt. Call light within reach.
--- NOTE | 2018-12-30 14:45 | NUR ---
[facility] was called to confirm room assignment, Rm 136 B. Spoke to Darlyn
--- NOTE | 2018-12-30 14:47 | NUR ---
[facility] WAS CALLED FOR TRANSPORT TO [facility]. SPOKE TO SUJEY. LOG RIDER TIME IS 1630.
[2018-12-30] MEDS: CEFEPIME 1 GM in D5W 50 ML IV SCH (14:51)
--- NOTE | 2018-12-30 14:58 | NUR ---
ROUNDS/ Pt resting quietly with no s/s resp distress, no c/o pain or discomfort. Pt seen by Dr. Bunch-orders given to discharge pt back to [facility] today. All precautions remain in place. Call light within reach.
[2018-12-30 15:33] VITALS: BP_SYST 147
[2018-12-30 16:02] VITALS: BP_SYST 153
--- NOTE | 2018-12-30 16:14 | NUR ---
REPORT CALLED Report called to Laura LANDERS at [facility]. Pt to continue with IV antibiotics, will keep IV in place per request.
--- NOTE | 2018-12-30 17:40 | NUR ---
PT TRANSFERRED Report given to Laura LANDERS at [facility]. Transfer packet with Transfer Orders and Medication Reconciliation form given to EMT with report. Exitcare provided. [facility] ID band removed, replaced with ID band with pt's name and . IV catheter saline lock kept in place-patient to have IVPB antibiotics at facility. All belongings sent with patient. Patient left floor via gurney escorted by EMT in no distress.
== END 2018-12-30 17:40 | DRG 682 ==
LOC: SED 18:36 → STU 19:42 → SMU 12-28 19:31
PROVIDERS: ADMIT Family Medicine; ATTEND Family Medicine
DX: N17.9 Acute kidney failure, unspecified (principal); G93.41 Metabolic encephalopathy; N39.0 Urinary tract infection, site not specified; E86.0 Dehydration; E03.9 Hypothyroidism, unspecified; I10 Essential (primary) hypertension; J44.9 Chronic obstructive pulmonary disease, unspecified; M19.90 Unspecified osteoarthritis, unspecified site; I49.5 Sick sinus syndrome; N40.0 Benign prostatic hyperplasia without lower urinary tract symptoms; Z95.0 Presence of cardiac pacemaker; Z88.2 Allergy status to sulfonamides; Z88.8 Allergy status to other drugs, medicaments and biological substances; Z88.6 Allergy status to analgesic agent
CPT/HCPCS: 36415; 80048; 85025; 87081; 99285; G0378; J0692; J1650; J7060

== ENCOUNTER 2019-04-10 16:59 | Inpatient (IN) | payer OTHER, MEDICAID ==
[~2019-04-10] VITALS: Ht 175.3 cm; Wt 89.8 kg
[~2019-04-10 16:59] MED LIST changes: -CALC-823 PO
[2019-04-10 17:00] VITALS: BP_SYST 166
[2019-04-10] MEDS ORDERED: NACL 0.9% 1,000 ML IV ONE (18:30)
[2019-04-10 18:46] LABS: BASOPHILS # (AUTO) 0.1 K/uL (0.0-0.2); BASOPHILS % (AUTO) 0.8 % (0.0-2.0); EOSINOPHILS # (AUTO) 0.1 K/uL (0.0-0.4); EOSINOPHILS % (AUTO) 1.1 % (0.0-4.0); HEMATOCRIT 45.5 % (36-54); LYMPHOCYTES # (AUTO) 1.4 K/uL (1.0-5.5); LYMPHOCYTES % (AUTO) 15.6 % (20.5-51.5); MEAN CORPUSCULAR HEMOGLOBIN 32 pg (27-31); MEAN CORPUSCULAR HGB CONC 33 % (32-36); MEAN CORPUSCULAR VOLUME 97 fL (79.0-98.0); MONOCYTES # (AUTO) 0.8 K/uL (0.0-1.0); MONOCYTES % (AUTO) 8.5 % (1.7-9.3); NEUTROPHILS # (AUTO) 6.6 K/uL (1.8-7.7); PLATELET COUNT (AUTO) 276 K/uL (130-430); RED BLOOD CELL COUNT(AUTO) 4.68 MIL/uL (4.2-6.2); RED CELL DISTRIBUTION WIDTH 14.6 % (9.0-15.0)
[2019-04-10 18:54] LABS: ANION GAP 7 (5-15); CHLORIDE 117 mmol/L (98-107); CREATININE 1.36 mg/dL (0.55-1.30); GLUCOSE 114 mg/dL (70-99); POTASSIUM 3.7 mmol/L (3.5-5.1); SODIUM SERUM 148 mmol/L (136-145); UREA NITROGEN, BLOOD 39 mg/dL (8-21)
[2019-04-10 19:04] LABS: INR 1.1 (0.80-1.20); PROTHROMBIN TIME 11.4 SECS (9.5-12.5)
[2019-04-10 19:23] LABS: ASPARTATE AMINOTRANSFERASE 12 U/L (10-37); FREE T4 (FREE THYROXINE) 0.6 ng/dL (0.6-1.6); TOTAL BILIRUBIN 0.7 mg/dL (0.0-1.0)
[2019-04-10 19:37] LABS: ALANINE AMINOTRANSFERASE 7 U/L (12-78)
[2019-04-10] MEDS ORDERED: THEO200T22 PO (19:37)
[2019-04-10] MEDS ORDERED: CRAN1TAB5 PO (19:37)
[2019-04-10] MEDS ORDERED: KCL 20 mEq in D5/0.45NS 1000mL 1,000 ML IV SCH (20:00)
[2019-04-10 20:39] VITALS: BP_SYST 143
[2019-04-10] MEDS ORDERED: THEOPHYLLINE ANHYDROUS 200 MG TAB.SR.12H PO SCH (21:00)
[2019-04-10] MEDS ORDERED: KCL 20 mEq in 0.45% NS 1000 mL 1,000 ML IV ONE (21:46)
[2019-04-10] MEDS ORDERED: cefTRIAXone 1 GM IVPB PREMIX 50 ML IV ONE (21:46)
[2019-04-10 22:00] LABS: BILIRUBIN,URINE NEGATIVE (NEGATIVE); BLOOD, URINE NEGATIVE (NEGATIVE); CLARITY/URINE SL HAZY (CLEAR); COLOR,URINE YELLOW (YELLOW); GLUCOSE,URINE NEGATIVE (NEGATIVE); KETONES,URINE NEGATIVE (NEGATIVE); LEUKOCYTE ESTERASE ,URINE NEGATIVE (NEGATIVE); NITRITE, URINE NEGATIVE (NEGATIVE); PH,URINE 5.5 (5.0-8.0); PROTEIN URINE TRACE (NEGATIVE); UROBILINOGEN,URINE 0.2 (0.2-1.0)
[2019-04-10] MEDS: cefTRIAXone 1 GM in D5W 50 ML IV SCH (22:09)
[2019-04-10] MEDS: KCL 20 mEq in 0.45% NS 1000 mL 1,000 ML IV SCH (22:10)
[2019-04-10 22:26] LABS: BACTERIA,URINE FEW /HPF (None Seen); MUCUS,URINE 1+ /LPF (None Seen); RBC,URINE 0-3 /HPF (0-3); WBC,URINE 0-3 /HPF (0-3)
[2019-04-10] MEDS: MEGESTROL ACETATE 400 MG/10 ML UDC PO SCH (23:08)
[2019-04-10] MEDS: CHOLECALCIFEROL (VITAMIN D-3) 400 UNIT TABLET PO SCH (23:08)
[2019-04-10] MEDS: DONEPEZIL HCL 5 MG TABLET (ARICEPT) PO SCH (23:09)
[2019-04-10] MEDS: ENOXAPARIN SODIUM 30 MG/0.3 ML SYRINGE SUBCUT SCH (23:10)
[2019-04-11 01:47] VITALS: BP_SYST 139
[2019-04-11] MEDS: LEVOTHYROXINE SODIUM 0.05 MG TABLET PO SCH (05:56)
[2019-04-11 08:00] VITALS: BP_SYST 121
[2019-04-11] MEDS: MEGESTROL ACETATE 400 MG/10 ML UDC PO SCH ×3 (09:00→20:54)
[2019-04-11] MEDS: amLODIPine BESYLATE 5 MG TABLET PO SCH ×2 (09:00→09:53)
[2019-04-11 12:48] VITALS: BP_SYST 139
[2019-04-11 17:32] VITALS: BP_SYST 146
[2019-04-11] MEDS: ATORVASTATIN 10 MG TABLET PO SCH (18:00)
[2019-04-11 20:00] VITALS: BP_SYST 107
[2019-04-11] MEDS: cefTRIAXone 1 GM in D5W 50 ML IV SCH (20:40)
[2019-04-11] MEDS: ENOXAPARIN SODIUM 30 MG/0.3 ML SYRINGE SUBCUT SCH (20:41)
[2019-04-11] MEDS: DONEPEZIL HCL 5 MG TABLET (ARICEPT) PO SCH (20:54)
[2019-04-11] MEDS: CHOLECALCIFEROL (VITAMIN D-3) 400 UNIT TABLET PO SCH (20:54)
[2019-04-11] MEDS: KCL 20 mEq in 0.45% NS 1000 mL 1,000 ML IV SCH (21:33)
[2019-04-11] MEDS: THEOPHYLLINE ANHYDROUS 200 MG CAP.ER.24H PO SCH (21:48)
[2019-04-11 23:43] VITALS: BP_SYST 135
[2019-04-12] MEDS: LEVOTHYROXINE SODIUM 0.05 MG TABLET PO SCH (06:01)
[2019-04-12] MEDS: MEGESTROL ACETATE 400 MG/10 ML UDC PO SCH ×2 (09:04→21:02)
[2019-04-12] MEDS: amLODIPine BESYLATE 5 MG TABLET PO SCH (09:08)
[2019-04-12] MEDS: THEOPHYLLINE ANHYDROUS 200 MG CAP.ER.24H PO SCH ×2 (09:09→21:02)
[2019-04-12] MEDS: KCL 20 mEq in 0.45% NS 1000 mL 1,000 ML IV SCH ×2 (13:00→21:04)
[2019-04-12 13:13] VITALS: BP_SYST 123
[2019-04-12 16:17] VITALS: BP_SYST 169
[2019-04-12] MEDS: ATORVASTATIN 10 MG TABLET PO SCH (17:44)
[2019-04-12 20:00] VITALS: BP_SYST 147
[2019-04-12] MEDS: DONEPEZIL HCL 5 MG TABLET (ARICEPT) PO SCH (21:02)
[2019-04-12] MEDS: ENOXAPARIN SODIUM 30 MG/0.3 ML SYRINGE SUBCUT SCH (21:02)
[2019-04-12] MEDS: CHOLECALCIFEROL (VITAMIN D-3) 400 UNIT TABLET PO SCH (21:02)
[2019-04-12] MEDS: cefTRIAXone 1 GM in D5W 50 ML IV SCH (21:03)
[2019-04-13 01:11] VITALS: BP_SYST 140
[2019-04-13] MEDS: LEVOTHYROXINE SODIUM 0.05 MG TABLET PO SCH ×2 (06:06→06:12)
[2019-04-13 07:45] VITALS: BP_SYST 116
[2019-04-13] MEDS: MEGESTROL ACETATE 400 MG/10 ML UDC PO SCH ×2 (08:21→20:16)
[2019-04-13] MEDS: THEOPHYLLINE ANHYDROUS 200 MG CAP.ER.24H PO SCH ×2 (08:22→20:16)
[2019-04-13] MEDS: amLODIPine BESYLATE 5 MG TABLET PO SCH (08:22)
[2019-04-13 11:45] VITALS: BP_SYST 139
[2019-04-13 16:00] VITALS: BP_SYST 140
[2019-04-13] MEDS: ATORVASTATIN 10 MG TABLET PO SCH (17:58)
[2019-04-13] MEDS: KCL 20 mEq in 0.45% NS 1000 mL 1,000 ML IV SCH (17:58)
[2019-04-13 20:00] VITALS: BP_SYST 145
[2019-04-13] MEDS: cefTRIAXone 1 GM in D5W 50 ML IV SCH (20:14)
[2019-04-13] MEDS: DONEPEZIL HCL 5 MG TABLET (ARICEPT) PO SCH (20:15)
[2019-04-13] MEDS: ENOXAPARIN SODIUM 30 MG/0.3 ML SYRINGE SUBCUT SCH (20:15)
[2019-04-13] MEDS: CHOLECALCIFEROL (VITAMIN D-3) 400 UNIT TABLET PO SCH (20:16)
[2019-04-14] VITALS (8 sets, daily range): BP systolic 123–146
[2019-04-14] MEDS: LEVOTHYROXINE SODIUM 0.05 MG TABLET PO SCH (06:35)
[2019-04-14 07:09] LABS: INR 1.3 (0.80-1.20); PROTHROMBIN TIME 12.9 SECS (9.5-12.5)
[2019-04-14 07:11] LABS: BASOPHILS # (AUTO) 0.1 K/uL (0.0-0.2); BASOPHILS % (AUTO) 0.9 % (0.0-2.0); EOSINOPHILS # (AUTO) 0.1 K/uL (0.0-0.4); HEMATOCRIT 44.1 % (36-54); HEMOGLOBIN 14.8 g/dL (14.0-18.0); LYMPHOCYTES # (AUTO) 1.7 K/uL (1.0-5.5); LYMPHOCYTES % (AUTO) 25.1 % (20.5-51.5); MEAN CORPUSCULAR HEMOGLOBIN 33 pg (27-31); MEAN CORPUSCULAR HGB CONC 34 % (32-36); MEAN CORPUSCULAR VOLUME 97 fL (79.0-98.0); MONOCYTES # (AUTO) 0.8 K/uL (0.0-1.0); PLATELET COUNT (AUTO) 257 K/uL (130-430); RED BLOOD CELL COUNT(AUTO) 4.53 MIL/uL (4.2-6.2); RED CELL DISTRIBUTION WIDTH 14.3 % (9.0-15.0); WHITE BLOOD COUNT (AUTO) 6.6 K/uL (4.8-10.8)
[2019-04-14 07:20] LABS: ALBUMIN 2.5 g/dL (3.4-4.8); ANION GAP 8 (5-15); ASPARTATE AMINOTRANSFERASE 15 U/L (10-37); CALCIUM 9.2 mg/dL (8.4-11.0); CHLORIDE 114 mmol/L (98-107); CREATININE 1.14 mg/dL (0.55-1.30); GLUCOSE 89 mg/dL (70-99); POTASSIUM 3.7 mmol/L (3.5-5.1); SODIUM SERUM 145 mmol/L (136-145); TOTAL BILIRUBIN 0.7 mg/dL (0.0-1.0); UREA NITROGEN, BLOOD 23 mg/dL (8-21)
[2019-04-14 07:21] LABS: ALANINE AMINOTRANSFERASE < 5 U/L (12-78)
[2019-04-14] MEDS: THEOPHYLLINE ANHYDROUS 200 MG CAP.ER.24H PO SCH ×2 (09:00→21:00)
[2019-04-14] MEDS: amLODIPine BESYLATE 5 MG TABLET PO SCH (09:00)
[2019-04-14] MEDS: MEGESTROL ACETATE 400 MG/10 ML UDC PO SCH ×2 (09:00→21:00)
[2019-04-14] MEDS: KCL 20 mEq in 0.45% NS 1000 mL 1,000 ML IV SCH (13:58)
[2019-04-14] MEDS ORDERED: fentaNYL CITRATE/PF 100 MCG/2 ML AMP ONE (14:29)
[2019-04-14] MEDS ORDERED: SIMETHICONE 40 MG/0.6 ML ML ONE (14:29)
[2019-04-14] MEDS: MIDAZOLAM HCL 5 MG/5 ML VIAL ONE ×2 (14:29→15:14)
[2019-04-14] MEDS ORDERED: CEFAZOLIN 1 GM IVPB PREMIX 50 ML IV ONE (16:00)
[2019-04-14] MEDS: ATORVASTATIN 10 MG TABLET PO SCH (17:10)
[2019-04-14] MEDS: cefTRIAXone 1 GM in D5W 50 ML IV SCH (20:18)
[2019-04-14] MEDS: ENOXAPARIN SODIUM 30 MG/0.3 ML SYRINGE SUBCUT SCH (20:18)
[2019-04-14] MEDS: DONEPEZIL HCL 5 MG TABLET (ARICEPT) PO SCH (21:00)
[2019-04-14] MEDS: CHOLECALCIFEROL (VITAMIN D-3) 400 UNIT TABLET PO SCH (21:00)
[2019-04-15 00:34] VITALS: BP_SYST 152
[2019-04-15] MEDS ORDERED: COMMUNICATION ORDER XX ONE (04:45)
[2019-04-15] MEDS ORDERED: amLODIPine BESYLATE 5 MG TABLET GT SCH (04:56)
[2019-04-15] MEDS ORDERED: ATORVASTATIN 10 MG TABLET GT SCH (04:57)
[2019-04-15] MEDS ORDERED: LEVOTHYROXINE SODIUM 0.05 MG TABLET GT SCH (05:04)
[2019-04-15] MEDS ORDERED: MEGESTROL ACETATE 400 MG/10 ML UDC GT SCH (05:05)
[2019-04-15 07:45] VITALS: BP_SYST 129
[2019-04-15] MEDS: THEOPHYLLINE ANHYDROUS 200 MG CAP.ER.24H PO SCH (08:18)
[2019-04-15] MEDS: KCL 20 mEq in 0.45% NS 1000 mL 1,000 ML IV SCH (10:30)
[2019-04-15 11:28] VITALS: BP_SYST 128
[2019-04-15 15:21] VITALS: BP_SYST 131
[2019-04-15 16:45] VITALS: BP_SYST 131
== END 2019-04-15 19:00 | DRG 682 ==
LOC: SED 16:59 → STU 19:52 → OBSVTOIN 04-12 08:42 → SMU 04-13 16:08
PROVIDERS: ADMIT Family Medicine; ATTEND Family Medicine
PROC: 0DH63UZ Insertion of Feeding Device into Stomach, Percutaneous Approach (ICD-10-PCS; principal; 2019-04-14 15:00)
DX: N17.0 Acute kidney failure with tubular necrosis (principal); G93.41 Metabolic encephalopathy; I13.0 Hypertensive heart and chronic kidney disease with heart failure and stage 1 through stage 4 chronic kidney disease, or unspecified chronic kidney disease; I50.40 Unspecified combined systolic (congestive) and diastolic (congestive) heart failure; N39.0 Urinary tract infection, site not specified; K29.80 Duodenitis without bleeding; N18.4 Chronic kidney disease, stage 4 (severe); E86.0 Dehydration; E03.9 Hypothyroidism, unspecified; E78.5 Hyperlipidemia, unspecified; N40.0 Benign prostatic hyperplasia without lower urinary tract symptoms; F02.80 Dementia in other diseases classified elsewhere, unspecified severity, without behavioral disturbance, psychotic disturbance, mood disturbance, and anxiety; G30.9 Alzheimer's disease, unspecified; R13.10 Dysphagia, unspecified; Z86.73 Personal history of transient ischemic attack (TIA), and cerebral infarction without residual deficits; Z95.2 Presence of prosthetic heart valve; Z95.0 Presence of cardiac pacemaker; Z99.3 Dependence on wheelchair; M19.90 Unspecified osteoarthritis, unspecified site; Z88.2 Allergy status to sulfonamides; Z88.9 Allergy status to unspecified drugs, medicaments and biological substances; I49.8 Other specified cardiac arrhythmias; R62.7 Adult failure to thrive
CPT/HCPCS: 36415; 43246; 70450-TC; 71045; 80053; 81000-TC; 83605; 83880; 84439; 84443-TC; 84484; 85025; 85610-TC; 85730-TC; 87040-TC; 87081; 87086; 92610-GN; 93005; 93306; 96360; 97110-GP; 97530-GP; 99285; G0378; J0690; J0696; J1650; J2250; J3010; J3480; J7030; J7060